=== PATIENT | male | born 1985 | race American Indian/Alaskan Native ===

== ENCOUNTER 2017-04-26 15:09 | Emergency (ER) | payer SELFPAY ==
[2017-04-26 16:34] LABS: Alanine Aminotransferase 23 units/L (7-56); Albumin 3.5 g/dL (3.9-5); BUN/Creatinine Ratio 21; Blood Urea Nitrogen 17 mg/dL (9-20); Calcium 8.4 mg/dL (8.4-10.2); Hemolysis Index 9; Lipase 24 units/L (13-60)
[2017-04-26 16:35] LABS: Basophils % (Auto) 0.4 % (0.0-1.8); Eosinophils % (Auto) 0.6 % (0.0-4.3); Hematocrit 47.7 % (35.5-45.6); Hemoglobin 15.5 gm/dl (11.8-15.2); Lymphocytes # (Auto) 1.9 K/mm3 (1.2-5.4); Lymphocytes % (Auto) 28.2 % (13.4-35.0); Mean Corpuscular HGB Conc 33 % (32-34); Mean Corpuscular Hemoglobin 29 pg (28-32); Mean Corpuscular Volume 91 fl (84-94); Monocytes # (Auto) 0.6 K/mm3 (0.0-0.8); Monocytes % (Auto) 9.2 % (0.0-7.3); Platelet Count 201 K/mm3 (140-440); Red Blood Count 5.27 M/mm3 (3.65-5.03); Red Cell Distribution Width 15.6 % (13.2-15.2)
[2017-04-26 16:36] LABS: INR 0.97 (0.87-1.13)
[2017-04-26] MEDS ORDERED: ZOFRAN IV ONE (16:36)
[2017-04-26] MEDS ORDERED: SUBLIMAZE IV ONE (16:36)
[2017-04-26 16:41] LABS: Bilirubin,Direct < 0.2 mg/dL (0-0.2)
--- NOTE | 2017-04-26 16:49 | Emergency Department Report ---
HPI - General Chief Complaint: Abdominal Pain Time Seen by Provider: 04/26/17 16:27 - HPI HPI: Room 6 The patient is 31-year-old male presenting with chief complaint of abdominal pain. The patient has a history of Down syndrome is a somewhat poor historian. The patient states she has had abdominal pain nausea vomiting and diarrhea of one day, whereas EMS reports the symptoms have been going on for 3 days. Patient denies any history of fever or sick contacts. Patient states his abdominal pain has been constant and diffuse. When asked to give his pain a score the patient does not respond with a number. Per EMS a ground wirer is normal with a [facility]. The ground wirer is not currently present at the time of my initial interview. Of note the patient does not have a history of seizure disorder. Also the patient was not reported to have had a seizure today but only tensed up while vomiting Location: Diffuse abdomen Duration: 1-3 days Quality: Pain Severity: [See above] Modifying factors: [see above] Context: [see above] Mode of transportation: EMS ED Past Medical Hx - Past Medical History Additional medical history: Down's Syndrome - Family History Family history: no significant - Social History Smoking Status: Never Smoker Substance Use Type: None - Medications Home Medications: Home Medications Medication Instructions Recorded Confirmed Last Taken Type Ciprofloxacin HCl [Ciprofloxacin 500 mg PO BID #20 tablet 04/26/17 Unknown Rx TAB] HYDROcodone/APAP 5-325 [[place] 1 - 2 each PO Q6HR PRN #10 tablet 04/26/17 Unknown Rx 5/325] Promethazine [Phenergan TAB] 25 mg PO Q6HR PRN #20 tab 04/26/17 Unknown Rx Promethazine [Phenergan] 25 mg UT Q6HR PRN #5 supp.rect 04/26/17 Unknown Rx ED Review of Systems ROS: Stated complaint: ABD PAIN/VOMITTING/SEIZURE Other details as noted in HPI Gastrointestinal: abdominal pain, nausea, vomiting, diarrhea Physical Exam - Physical Exam Vital Signs: Vital Signs 04/26/17 15:24 Temperature 98.4 F Pulse Rate 105 H Respiratory 18 Rate Blood Pressure 112/76 O2 Sat by Pulse 99 Oximetry Physical Exam: GENERAL: The patient is well-nourished male with Down's facies sitting on stretcher not appearing to be in acute distress. [] HEENT: Atraumatic. Extraocular motions are intact. Patient has moist mucous membranes. NECK: Supple. Trachea midline CHEST/LUNGS: Clear to auscultation. There is no respiratory distress noted. HEART/CARDIOVASCULAR: Regular. There is no tachycardia. There is no gallop rub or murmur. ABDOMEN: Abdomen is soft, with tenderness to palpation in the left upper, left lower, right lower quadrants. Patient has normal bowel sounds. There is no abdominal distention. SKIN: There is no rash. There is no edema. There is no diaphoresis. NEURO: The patient is awake, alert, and oriented. The patient is cooperative. The patient has normal speech MUSCULOSKELETAL: There is no evidence of acute injury. ED Course Vital Signs 04/26/17 15:24 Temperature 98.4 F Pulse Rate 105 H Respiratory 18 Rate Blood Pressure 112/76 O2 Sat by Pulse 99 Oximetry - Consultations Consultation #1: 04/26/17 17:21 The caretakers arrived and has provided telephone number for the day Center patient was at today ([phone]). I discussed with the staff today's events and she states the patient was in his usual state of health all morning until after lunch at 13:30 he began balling up, appeared to be in pain and would not stand up. She states the patient was laying on the ground and when he would not get up EMS was called. Upon EMS arrival patient vomited one time. She states his lungs consisted of baked chicken/sandwich and chips. Other attendees ate the same meal and no one else was sick Consultation #2: 04/26/17 19:04 Patient tolerated po challenge ED Medical Decision Making - Lab Data Result diagrams: 04/26/17 16:01 04/26/17 16:01 Laboratory Tests 04/26/17 04/26/17 04/26/17 16:01 16:01 16:01 WBC 6.8 RBC 5.27 H Hgb 15.5 H Hct 47.7 H MCV 91 MCH 29 MCHC 33 RDW 15.6 H Plt Count 201 Lymph % (Auto) 28.2 [place] % (Auto) 9.2 H Eos % (Auto) 0.6 Baso % (Auto) 0.4 Lymph # 1.9 [place] # 0.6 Eos # 0.0 Baso # 0.0 Seg Neutrophils % 61.6 Seg Neutrophils # 4.2 PT 13.4 INR 0.97 Sodium 141 Potassium 4.1 Chloride 97.8 L Carbon Dioxide 30 Anion Gap 17 BUN 17 Creatinine 0.8 Estimated GFR > 60 BUN/Creatinine Ratio 21 Glucose 87 Calcium 8.4 Total Bilirubin 0.20 Direct Bilirubin < 0.2 Indirect Bilirubin 0.0 AST 13 ALT 23 Alkaline Phosphatase 94 Total Protein 6.6 Albumin 3.5 L Albumin/Globulin Ratio 1.1 Amylase 55 Lipase 24 Urine Color Urine Turbidity Urine pH Ur Specific [place] Urine Protein Urine Glucose (UA) Urine Ketones Urine Blood Urine Nitrite Urine Bilirubin Urine Urobilinogen Ur Leukocyte Esterase Urine WBC (Auto) Urine RBC (Auto) U Epithel Cells (Auto) 04/26/17 17:04 WBC RBC Hgb Hct MCV MCH MCHC RDW Plt Count Lymph % (Auto) [place] % (Auto) Eos % (Auto) Baso % (Auto) Lymph # [place] # Eos # Baso # Seg Neutrophils % Seg Neutrophils # PT INR Sodium Potassium Chloride Carbon Dioxide Anion Gap BUN Creatinine Estimated GFR BUN/Creatinine Ratio Glucose Calcium Total Bilirubin Direct Bilirubin Indirect Bilirubin AST ALT Alkaline Phosphatase Total Protein Albumin Albumin/Globulin Ratio Amylase Lipase Urine Color Yellow Urine Turbidity Clear Urine pH 5.0 Ur Specific [place] 1.021 Urine Protein <15 mg/dl Urine Glucose (UA) Neg Urine Ketones Neg Urine Blood Neg Urine Nitrite Neg Urine Bilirubin Neg Urine Urobilinogen < 2.0 Ur Leukocyte Esterase Neg Urine WBC (Auto) 1.0 Urine RBC (Auto) 1.0 U Epithel Cells (Auto) < 1.0 - Radiology Data Radiology results: report reviewed (CT abdomen and pelvis), image reviewed (CT abdomen and pelvis) FINAL REPORT PROCEDURE: CT ABDOMEN PELVIS W CON TECHNIQUE: Computerized axial tomography of the abdomen and pelvis was performed after the IV injection of iodinated nonionic contrast. HISTORY: diffuse abdominal pain, nausea vomiting diarrhea COMPARISON: No prior studies are available for comparison. FINDINGS: Lower Lung chan: No focal abnormality seen. Sternotomy wires are partially visualized. There is increased density seen superior aspect of the ventricular septum. Correlation with prior surgery history recommended. Upper Abdomen: The liver, the gallbladder, the adrenal glands, the pancreas and spleen are unremarkable. Kidneys, Ureters and Urinary bladder: Kidneys and ureters are unremarkable. The flores of the urinary bladder appear mildly diffusely thickened. I cannot exclude cystitis. Retroperitoneum: Abdominal aorta appears normal. Nonspecific subcentimeter lymph nodes are seen in the retroperitoneum. No pathologically enlarged lymph nodes are identified. Bowel: In the left upper quadrant there are several loops of small bowel which appear to have diffuse wall thickening. The appearance suggest a nonspecific diffuse enteritis. This is seen throughout images 59 through 68 and a few other additional images. There is no evidence of bowel obstruction ascites or free intraperitoneal gas. The appendix is visualized in the right lower quadrant and appears normal directed anteriorly.. Reproductive organs: Prostate gland does not appear to be enlarged. Other: No acute bony abnormalities are identified. 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 IMPRESSION: Several loops of small bowel in the left upper quadrant show significant wall thickening suggesting a nonspecific enteritis. Consider infectious etiology and inflammatory bowel disease. No evidence of bowel obstruction or ascites. Flores of the urinary bladder appear mildly diffusely thickened. I cannot exclude cystitis. Thoracotomy wires are partially visualized. There is increased density overlying septum of the heart. There may have been prior interventional procedure in this area. Correlation with prior surgical history recommended. There is sclerotic change visualized in the SI joints bilaterally as described above.. Transcribed By: RUTHIE Dictated By: JOSE JUAN ESPINOZA MD Electronically Authenticated By: JOSE JUAN ESPINOZA MD Signed Date/Time: 04/26/171427 DD/ 27 TD/TT: 04/26/171427 - Differential Diagnosis gastroenteritis, partial small bowel obstruction, UTI, diverticulitis, appe Critical care attestation.: If time is entered above; I have spent that time in minutes in the direct care of this critically ill patient, excluding procedure time. ED Disposition Clinical Impression: Acute abdominal pain, Nausea vomiting and diarrhea, Enteritis Disposition: - TO HOME OR SELFCARE Is pt being admited?: No Does the pt Need Aspirin: No Condition: Stable Instructions: Acute Nausea and Vomiting (ED) Additional Instructions: Return to the emergency department immediately should you develop worsening symptoms, fever, inability to tolerate food or liquid or any other concerns. Prescriptions: Ciprofloxacin HCl [Ciprofloxacin TAB] 500 mg PO BID #20 tablet HYDROcodone/APAP 5-325 [[place] 5/325] 1 - 2 each PO Q6HR PRN #10 tablet PRN Reason: Pain Promethazine [Phenergan TAB] 25 mg PO Q6HR PRN #20 tab PRN Reason: Nausea Promethazine [Phenergan] 25 mg UT Q6HR PRN #5 supp.rect PRN Reason: Vomiting Referrals: PRIMARY CARE, [Primary Care Provider] - 3-5 Days JOI FORD MD [Staff Physician] - 3-5 Days (Dr. Ford is a hot blaster. Please follow up in for further evaluation) Time of Disposition: 19:04
[2017-04-26] MEDS ORDERED: NACL 0.9% 1000 ML 1,000 ML ONE (16:51)
[2017-04-26] MEDS ORDERED: NACL 0.9% 1000 ML 1,000 ML IV ONE (16:56)
[2017-04-26 17:28] LABS: Bilirubin,Urine NEG (Negative); Blood,Urine NEG (Negative); Color,Urine Yellow (Yellow); Nitrite,Urine NEG (Negative); Protein,Urine <15 mg/dL mg/dL (Negative); Urobilinogen,Urine < 2.0 mg/dL (<2.0)
--- NOTE | 2017-04-26 18:33 | Cat Scan Report ---
FINAL REPORT PROCEDURE: CT ABDOMEN PELVIS W CON TECHNIQUE: Computerized axial tomography of the abdomen and pelvis was performed after the IV injection of iodinated nonionic contrast. HISTORY: diffuse abdominal pain, nausea vomiting diarrhea COMPARISON: No prior studies are available for comparison. FINDINGS: Lower Lung chan: No focal abnormality seen. Sternotomy wires are partially visualized. There is increased density seen superior aspect of the ventricular septum. Correlation with prior surgery history recommended. Upper Abdomen: The liver, the gallbladder, the adrenal glands, the pancreas and spleen are unremarkable. Kidneys, Ureters and Urinary bladder: Kidneys and ureters are unremarkable. The flores of the urinary bladder appear mildly diffusely thickened. I cannot exclude cystitis. Retroperitoneum: Abdominal aorta appears normal. Nonspecific subcentimeter lymph nodes are seen in the retroperitoneum. No pathologically enlarged lymph nodes are identified. Bowel: In the left upper quadrant there are several loops of small bowel which appear to have diffuse wall thickening. The appearance suggest a nonspecific diffuse enteritis. This is seen throughout images 59 through 68 and a few other additional images. There is no evidence of bowel obstruction ascites or free intraperitoneal gas. The appendix is visualized in the right lower quadrant and appears normal directed anteriorly.. Reproductive organs: Prostate gland does not appear to be enlarged. Other: No acute bony abnormalities are identified. 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 IMPRESSION: Several loops of small bowel in the left upper quadrant show significant wall thickening suggesting a nonspecific enteritis. Consider infectious etiology and inflammatory bowel disease. No evidence of bowel obstruction or ascites. Flores of the urinary bladder appear mildly diffusely thickened. I cannot exclude cystitis. Thoracotomy wires are partially visualized. There is increased density overlying septum of the heart. There may have been prior interventional procedure in this area. Correlation with prior surgical history recommended. There is sclerotic change visualized in the SI joints bilaterally as described above..
[2017-04-26 19:34] VITALS: BP 109/73
== END 2017-04-26 20:04 | disposition home or self-care (01) ==
LOC: ED 15:09
DX: K52.9 Noninfective gastroenteritis and colitis, unspecified (principal); R11.2 Nausea with vomiting, unspecified; Q90.9 Down syndrome, unspecified
CPT/HCPCS: 36415; 74177; 80048; 80074; 81001; 82150; 83690; 85025; 85610; 96361; 96374; 96375; 99284; J2405; J3010; J7030; Q9967